=== PATIENT | female | born 1955 | race Caucasian/White ===

== ENCOUNTER 2019-11-17 07:20 | Outpatient (CLI) | payer MEDICARE, SELFPAY ==
--- NOTE | 2019-12-12 13:25 | WPDHOMESLEEP ---
Sleep Study - Home Date of Study: 11/17/19 Ordering Provider: Clara Hopson DO Interpreting Physician: Ema Petersen MD Home Sleep Study Type: Apnea Link Air Height: 1.63 m Weight: 67.132 kg Body Mass Index: 25.4 Folcroft: 21 Reason for Sleep Study history of obstructive sleep apnea syndrome on CPAP, lost weight, history of using Ambien Sleep History Alie Monteiro is a 64 year-old female who was diagnosed with obstructive sleep apnea syndrome and started CPAP 5-6 years ago. At the time she was diagnosed, she weighed 205 lb. She used CPAP until she lost 57 pounds, now 148 lb. When she tries use her CPAP she cannot use it because she cannot breathe. She says that Dr. Hopson will not continue to prescribe the Ambien until she repeats a sleep study. Dr Hopson's note indicates that the patient had restless leg syndrome and leg movements at night until she lost weight. These have resolved She has taken Ambien for 10 years. She has difficulty falling asleep, she wakes up during the night, she has excessive daytime sleepiness and she has a difficult time waking up. She has seen numerous people about her sleep including her primary care doctor, chiropractor, counselor, psychiatrist and psychologist. She does not snore and it is not loud enough that others complain about it. She does not awaken at night with heartburn Edison coughing. She does not awaken at night feeling short of breath. She does constantly have trouble falling asleep with a cold. She does not wake up gasping for breath at night does not have breathing problems at night observed by others does not sweat excessively at night and does not notice her heart pounding or beating irregularly at night. She frequently falls asleep during the day frequently involuntarily occasionally while driving. She does not fall asleep during physical effort. She does not fall asleep with laughing or crying. She does not have loss of muscle tone with strong emotion. She does not has daytime difficulty due to excessive sleepiness. She frequently feels paralyzed on waking or falling asleep occasionally has vivid dreamlike scenes upon awakening or falling asleep. She has never freight to go to sleep. She does not have nightmares and does not remember her dreams. She frequently has racing thoughts, feelings of sadness depression anxiety and frequently has muscular tension, notices parts of her body jerking and she frequently kicks at night. She frequently has crawling and aching feelings in her legs. She occasionally has leg pain at night denies morning jaw pain. She occasionally grinds her teeth at night. She has occasional bothered by pain during the day and occasionally is awakened by pain at night. She rarely wakes up feeling stiff in the morning with sore achy muscles occasion wakes up with pain in the neck and spine. She has dizziness fatigue panic memory problems insomnia headaches and does not find it easy to make decisions. Folcroft = 21, extremely high Normal bedtime is bit at 9:00 p.m. taking quite a while to fall asleep sometimes still awake at 3:30 a.m. in the morning. She wakes 3-4 times at night and stays awake on average between 15 minutes and 1 hour. When she wakes during the night she goes to urinate will get a drink of water. She wakes the morning at 6:30 a.m. or as late as 8:00 a.m.. She has no libido. This causes significant fights with her . She estimates somewhere between 4 and 6 hours of sleep at night. She does take naps. A short nap is not refreshing. She is drowsy in the morning for an hour. She feels better in the morning compared to other times of day. PMH: anxiety major depression seasonal allergies restless leg syndrome and limb movements which have resolved with weight loss PMFSH Past Medical History Medical History Anxiety GERD without esophagitis Hyperlipidemia Insomnia Migraine, unspecified, not
[2019-12-12 14:55] VITALS: BMI 25.4
== END 2019-11-17 07:21 | disposition home or self-care (01) ==
LOC: ANHCSM 07:20
PROVIDERS: PCP Family Medicine; Visit Provider Family Medicine
DX: G47.33 Obstructive sleep apnea (adult) (pediatric) (principal)
CPT/HCPCS: 95806

== ENCOUNTER 2021-05-06 13:00 | Outpatient (CLI) | payer MEDICARE, SELFPAY ==
--- NOTE | ~2021-05-06 | XR_ITS ---
EXAMINATION:[id number] DATE: 05/06/2021 13:27 INDICATION: Back pain TECHNIQUE: AP, lateral, and odontoid views of the cervical spine are provided. COMPARISON: None FINDINGS: Alignment is normal. The odontoid is intact. No fracture is identified. The vertebral body heights are maintained. There is mild loss of intervertebral disc space height throughout the cervica l spine. There is moderate multilevel facet and uncovertebral joint osteoarthritis. Prevertebral soft tissues are normal. IMPRESSION: 1. Mild cervical spondylosis without acute findings. Reviewed, dictated and finalized at location B.
== END 2021-05-06 13:01 | disposition home or self-care (01) ==
PROVIDERS: PCP Family Medicine; Visit Provider Family Medicine
DX: M47.812 Spondylosis without myelopathy or radiculopathy, cervical region (principal)
CPT/HCPCS: 72040

== ENCOUNTER → 2021-05-20 10:35 | Outpatient (CLI) | payer MEDICARE, SELFPAY ==
--- NOTE | ~2021-05-20 | MR_ITS ---
EXAMINATION: MR brain/brain stem wo con EXAM DATE: 05/20/2021 11:26 INDICATION: R41.3 - Other amnesia TECHNIQUE: Magnetic resonance imaging (MRI) of the brain/brain stem obtained without contrast. Shaq pierce T1, axial diffusion, gradient echo (T2*), T1, T2, FLAIR sequences obtained. Comparison is made to prior examination from 08/07/2011. FINDINGS: There are no areas of restricted diffusion to suggest acute infarction. There is no acute hemorrhage seen on the T2*, a hemosiderin sensitive sequence. No intraparenchymal brain mass lesion. There is mild periventricular and subcortical T2/FLAIR signal hyperintensity, nonspecific but pro bably related to small vessel ischemic disease (microangiopathy). There are no extra-axial collecti ons. Flow voids are seen in the cerebral arteries on the T2-weighted sequences consistent with their expected patency. The orbits are unremarkable. Soft tissue is unremarkable. IMPRESSION: Minimal microangiopathy. Otherwise unremarkable exam. Reviewed, dictated and finalized at location A.
== END ==
PROVIDERS: PCP Family Medicine; Visit Provider Family Medicine
DX: R41.3 Other amnesia (principal)
CPT/HCPCS: 70551

== ENCOUNTER 2021-05-28 08:35 | Outpatient (CLI) | payer MEDICARE, SELFPAY ==
--- NOTE | 2021-05-30 12:22 | WPDHOLTEREM ---
Holter/Event Monitor Holter/Event Monitor Date of procedure: 05/28/21 Holter/Event Procedure: 24 Hr Holter Monitor Indications: Palpitations Conclusion: 1. 24 hour holter monitor on 05/28/21. 2. Predominant rhythm is sinus rhythm. HR range 70-135 bpm; average HR 89 bpm. 3. There are 475 premature supraventricular complexes and 6 supraventricular couplets. There are 9 episodes of atrial tachycardia, fastest at 162 bpm and longest lasting 11 beats. 4. There are 8 premature ventricular complexes. No ventricular tachycardia. 5. No sinoatrial or atrioventricular blocks. No significant pauses greater than 2 seconds. 6. Patient reports symptoms of shortness of breath and chest pain which demonstrate sinus rhythm, HR range 82-111 bpm.
== END 2021-05-28 08:36 | disposition home or self-care (01) ==
LOC: ANHCARD 08:36
PROVIDERS: PCP Family Medicine; Visit Provider Family Medicine
DX: I49.9 Cardiac arrhythmia, unspecified (principal); R00.2 Palpitations
CPT/HCPCS: 93225; 93226

== ENCOUNTER → 2021-07-18 12:18 | Outpatient (CLI) | payer MEDICARE, SELFPAY ==
--- NOTE | ~2021-07-18 | MM_ITS ---
EXAMINATION: MM screening bozena BI w tiffany HISTORY: Screening mammogram TECHNIQUE: Craniocaudal and mediolateral oblique 3-D tomosynthesis images were obtained and synthetic 2-D images were generated. CAD analysis was submitted and interpreted. COMPARISON: 07/10/2016 bilateral screening mammogram BREAST PARENCHYMAL COMPOSITION: There are scattered areas of fibroglandular density. FINDINGS: There is no evidence of suspicious mass, calcification, or architectural distortion to sugg est malignancy in either breast. There has been no suspicious interval change. IMPRESSION: 1. No mammographic evidence of malignancy. 2. Recommend routine screening mammography in one year. BI-RADS Category 1: Negative Reviewed, dictated and finalized at location A.
--- NOTE | ~2021-07-18 | DEXA_ITS ---
Bone Density Report Name: DALIA TORREZ Age: 65 Sex: Female Ethnicity: White Date of : 1955 Indication: postmenopausal; screening for osteoporosis; hysterectomy; Referring Provider: Clara Hopson Study: Bone densitometry was performed. Exam Date: July 18, 2021 Accession number: [id number] Bone Density: Region BMD T-score Z-score Classification AP Spine (L1-L4) 0.965 -0.7 1.2 Normal Femoral Neck (Left) 0.724 -1.1 0.5 Osteopenia Total Hip (Left) 0.909 -0.3 1.1 Normal Femoral Neck (Right) 0.733 -1.0 0.6 Normal Total Hip (Right) 0.898 -0.4 1.0 Normal Total Hip Mean 0.904 -0.4 1.1 Normal World Health Organization criteria for BMD impression classify patients as: Normal (T-score at or above -1.0), Osteopenia (T-score between -1.0 and -2.5), or Osteoporosis (T-score at or below -2.5). 10-year Fracture Risk(1): Major Osteoporotic Fracture 8.4% Hip Fracture 0.8% Reported Risk Factors: [place] (), Neck BMD=0.724, BMI=31.1 (1) FRAX(R) Version 3.08. Fracture probability calculated for an untreated patient. Fracture probability may be lower if the patient has received treatment. Clinical Information Provided by Patient: Has the following medical conditions: Hysterectomy Patient maximum height was 64 Menopause Age: 43 No regular weight bearing exercise Drinks caffeinated beverages Onset of menses at age 12 Number of children 3 Impression: The patient has low bone mass, based on the Left Femoral Neck T-score. The patient has an estimated ten-year risk of hip fracture of 0.8% and an estimated ten-year risk of major fracture of 8.4%, based on the WHO FRAX algorithm. Discussion: BONE DENSITY IS LOW AT ONE OR MORE SKELETAL SITES. This patient's lowest T-score is low at one or more skeletal sites. It meets the World Health Organization's (WHO) criteria for ?low bone mass? (T-score between -1.0 and -2.5). The patient's 10-year risk of fracture as calculated by FRAX is less than the threshold where pharmacological therapy is recommended by the National Osteoporosis Foundation (NOF). However, all treatment decisions require clinical judgment and consideration of individual patient factors, including patient preferences, comorbidities, previous drug use, risk factors not captured in the FRAX model (e.g., frailty, falls, vitamin D deficiency, increased bone turnover, interval significant decline in bone density) and possible under or overestimation of fracture risk by FRAX. The patient should follow a healthful lifestyle (good nutrition with adequate calcium and vitamin D, and appropriate weight-bearing exercise). Follow-Up: Consider repeating this study in 2 to 3 years to reassess this patient's status, or sooner if there is some new clinical indication. Reported by: CARLOS on
== END ==
PROVIDERS: PCP Family Medicine; Visit Provider Family Medicine
DX: Z12.31 Encounter for screening mammogram for malignant neoplasm of breast (principal); Z78.0 Asymptomatic menopausal state; M85.852 Other specified disorders of bone density and structure, left thigh
CPT/HCPCS: 77063; 77067; 77080

== ENCOUNTER 2021-07-25 09:58 | Outpatient (CLI) | payer MEDICARE, SELFPAY ==
--- NOTE | ~2021-07-25 | MR_ITS ---
EXAMINATION: MR cervical spine wo con DATE: 07/25/2021 10:49 INDICATION: Cervical radiculopathy. TECHNIQUE: Magnetic resonance imaging (MRI) of the cervical spine was performed without intravenous c ontrast. Sequences included sagittal T2-weighted FSE, sagittal T2-weighted FS FSE, sagittal T1-weight ed FSE, axial MERGE, and axial T2-weighted FSE. COMPARISON: Cervical spine radiographs 05/06/2021 FINDINGS: Bone alignment is normal. Vertebral body heights are normal. There is mildly decreased disc height at C4-C5, C5-C6, and C6-C7. The spinal cord signal intensity is normal. The following disc le vels are specifically discussed: C2-C3: The disc does not extend beyond the endplate margin. There is no uncovertebral joint osteoarth ritis. There is mild bilateral facet joint osteoarthritis. There is no neural foraminal stenosis. The re is no central canal stenosis. C3-C4: The disc is bulging. There is mild bilateral uncovertebral joint osteoarthritis. There is mild bilateral facet joint osteoarthritis. There is mild bilateral neural foraminal stenosis. There is no central canal stenosis. C4-C5: The disc is bulging. There is moderate bilateral uncovertebral joint osteoarthritis. There is severe bilateral facet joint osteoarthritis. There is moderate bilateral neural foraminal stenosis. T here is no central canal stenosis. C5-C6: The disc does not extend beyond the endplate margin. There is mild right uncovertebral joint o steoarthritis. There is severe right and mild left facet joint osteoarthritis. There is mild right ne ural foraminal stenosis. There is no central canal stenosis. C6-C7: The disc is bulging. There is moderate bilateral uncovertebral joint osteoarthritis. There is severe bilateral facet joint osteoarthritis. There is moderate right and mild left neural foraminal s tenosis. There is mild central canal stenosis. C7-T1: The disc does not extend beyond the endplate margin. There is severe bilateral uncovertebral j oint osteoarthritis. There is mild bilateral facet joint osteoarthritis. There is no neural foraminal stenosis. There is no central canal stenosis. IMPRESSION: 1. Moderate cervical spondylosis. Reviewed, dictated and finalized at location A.
== END 2021-07-25 09:59 | disposition home or self-care (01) ==
PROVIDERS: PCP Family Medicine; Visit Provider Nurse Practitioner Family
DX: M47.22 Other spondylosis with radiculopathy, cervical region (principal)
CPT/HCPCS: 72141

== ENCOUNTER 2022-08-29 12:58 | Outpatient (CLI) | payer MEDICARE, SELFPAY ==
[2022-08-29 13:36] LABS: Basophils Absolute Auto 0.1 K/mm3 (0.0-0.1); Basophils Percent Auto 0.8 % (0.2-1.2); Eosinophils Absolute Auto 0.1 K/mm3 (0-0.3); Eosinophils Percent Auto 1.7 % (0-4.4); Hemoglobin 13.8 g/dL (12.0-15.0); Immature Granulocyte Absolute 0.01 K/mm3 (0.00-0.031); Immature Granulocyte Percent A 0.1 % (0-0.5); Lymphocytes Absolute Auto 3.01 K/mm3 (0.9-3.2); Lymphocytes Percent Auto 39.6 % (18.3-44.2); Mean Corpuscular HGB Conc 31.4 g/dl (32-36); Mean Corpuscular Hemoglobin 28.5 pg (26-34); Mean Corpuscular Volume 90.9 fl (80-100); Mean Platelet Volume 9.8 fl (7.4-10.4); Monocytes Absolute Auto 0.4 K/mm3 (0.1-0.6); Monocytes Percent Auto 5.5 % (2.6-8.5); Neutrophils Percent Auto 52.3 % (45.5-73.1); Platelet Count Result 338 k/mm3 (150-375); Red Blood Count 4.84 M/mm3 (4.2-5.4); White Blood Count 7.6 K/mm3 (4.5-10.0)
[2022-08-29 13:50] LABS: D Dimer 0.27 ug/mL (<0.48)
[2022-08-29 13:54] LABS: Alanine Aminotransferase 20 U/L (6-35); Albumin Level 4.5 g/dL (3.5-5.1); Alkaline Phosphatase 62 U/L (38-126); Anion Gap 10 mmol/L (8-16); Aspartate Amino Transferase 25 U/L (14-36); Bilirubin,Total 0.6 mg/dL (0.2-1.3); Blood Urea Nitrogen 15 mg/dL (7-17); Calcium 9.7 mg/dL (8.4-10.2); Carbon Dioxide 26 mmol/L (22-30); Chloride 100 mmol/L (98-107); Estimated Glomerular Filt Rate > 60; Glucose 142 mg/dL (65-110); Lipase 69 U/L (23-300); Potassium 3.8 mmol/L (3.4-5.0); Sodium 136 mmol/L (137-145)
[2022-08-29 14:00] LABS: NT Pro B Type Natriuretic Pept 106 pg/mL (19.9-100); Troponin I < 0.012 ng/mL (0.000-0.034)
== END 2022-08-29 12:59 | disposition home or self-care (01) ==
PROVIDERS: PCP Physician Assistant Medical; Visit Provider Physician Assistant Medical
DX: K21.9 Gastro-esophageal reflux disease without esophagitis (principal); R06.00 Dyspnea, unspecified; R06.02 Shortness of breath; R07.9 Chest pain, unspecified; R13.10 Dysphagia, unspecified; E78.5 Hyperlipidemia, unspecified
CPT/HCPCS: 36415; 80053; 83690; 83735; 83880; 84443; 84484; 85025; 85380

== ENCOUNTER 2022-09-18 01:48 | Day surgery (SDC) | payer MEDICARE, SELFPAY ==
[2022-09-09 08:28] VITALS: BMI 26.4
--- NOTE | 2022-09-17 20:47 | PM.HPGS ---
History of Present Illness History of Present Illness Consent: Risks, benefits, and alternatives have been discussed and questions answered. Patient agrees to proceed with procedure. Chief complaint: GERD, dysphagia Narrative: Alie Montiero is a 66 year old female with dysphagia for solid food. At times it will also seem that it is difficult for water to go down.. Several years ago she had EGD and dilatation it was quite helpful. Review of Systems Review of Systems: All systems reviewed & are unremarkable except as noted in HPI and below PMFSH Past Medical History Medical History Anxiety Dysphagia Dyspnea Folic acid deficiency (non anemic) GERD without esophagitis Hyperlipidemia Insomnia Migraine, unspecified, not intractable, without status migrainosus TRUDY (obstructive sleep apnea) Recurrent major depressive disorder, in full remission Restless legs syndrome Trochanteric bursitis of right hip Vitamin B12 deficiency Vitamin D deficiency, unspecified Surgical History Surgical History Cyst of spinal meninges 1973 Deficient knowledge of hysterectomy 1999 Enlarged tonsils 1971 H/O hernia repair 1958 Family History Family History Father Hypertension Family history of cardiovascular disease Family history of malignant neoplasm Mother Hypertension Family history of chronic obstructive pulmonary disease Grandparent Hypertension Family history of cardiovascular disease Cerebrovascular accident Family history of Alzheimer's disease Social History Social History Smoking status: Never smoker Second hand tobacco smoke exposure: Yes Alcohol intake: never Substance use: never Substance use type: does not use Living arrangements: with family Occupation/Education: retired Gender identity (if verbalized by the patient): Female Sexual Orientation (if Verbalized by the Patient): Straight or Heterosexual Spiritual care concerns: No Agree to blood products: Yes Meds Home Medications and Allergies Home Medications Medication Instructions Recorded Confirmed Type cyclobenzaprine 10 mg tablet 10 mg PO TID PRN muscle spasm #30 05/01/21 09/09/22 Rx tabs cholecalciferol (vitamin D3) 125 125 mcg PO DAILY #90 caps 07/22/21 09/09/22 Rx mcg (5,000 unit) capsule cyanocobalamin (vitamin B-12) 1,000 mcg sublingual DAILY #50 ea 07/22/21 09/09/22 Rx 1,000 mcg sublingual lozenge metoprolol succinate 25 mg 25 mg PO DAILY 07/22/21 09/09/22 History tablet,extended release 24 hr duloxetine 60 mg capsule,delayed See Rx Instructions .Route 07/25/21 09/09/22 Rx release .COMPLEX #90 caps bupropion HCl 150 mg tablet,12 hr See Rx Instructions .Route 07/30/21 09/09/22 Rx sustained-release .COMPLEX #90 tabs lamotrigine 100 mg tablet See Rx Instructions .Route 07/30/21 09/09/22 Rx .COMPLEX #90 tabs aripiprazole 2 mg tablet 2 mg PO DAILY 11/14/21 09/18/22 History zolpidem 12.5 mg tablet,extended 12.5 mg PO QHS PRN sleep #30 tabs 07/03/22 09/09/22 Rx release,multiphase pantoprazole 40 mg tablet,delayed See Rx Instructions .Route 08/20/22 09/09/22 Rx release .COMPLEX #90 tabs gabapentin 600 mg tablet 600 mg PO BID #180 tabs 08/21/22 09/18/22 Rx hydrocodone 7.5 mg-acetaminophen See Rx Instructions .Route 09/09/22 09/09/22 History 325 mg tablet .COMPLEX PRN Pain mupirocin 2 % topical ointment 1 applic topical BID PRN dry nose 09/09/22 09/09/22 History semaglutide 1 mg/dose (2 mg/1.5 1 mg subcut WEEKLY 09/09/22 09/18/22 History mL) subcutaneous pen injector ([email or web address]) Allergies Allergy/AdvReac Type Severity Reaction Status Date / Time No Known Allergies Allergy Verified 09/18/22 11:01 Exam Const: General: alert Orientation/consciousness: patient oriente
[2022-09-18 11:03] VITALS: BP 129/53; PULSE 67; RESP 18; TEMP 36.8; O2SAT 100
[2022-09-18] MEDS: LACTATED RINGERS 1,000 ML 150 ML IV CONT (11:11)
--- NOTE | 2022-09-18 11:39 | WPDANESEPPF ---
Anes - Initial Pre Proc Eval Procedure: Operation Date: 09/18/22 12:30 Proposed Procedures p Esophagogastroduodenoscopy - Uriah Beverly MD Date/Time: 09/18/22 11:39 Surgeon: Uriah Beverly MD Pre Op Diagnosis: GERD, dysphagia Patient Data Age: 66 Gender: F Height: 1.63 m Weight: 73.9 kg Last Vital Signs Temp 98.3 F 09/18/22 11:03 Pulse 67 09/18/22 11:03 Resp 18 09/18/22 11:03 BP 129/53 L 09/18/22 11:03 Pulse Ox 100 09/18/22 11:03 O2 Del Method Room Air 09/18/22 11:03 Allergies Allergy/AdvReac Type Severity Reaction Status Date / Time No Known Allergies Allergy Verified 09/18/22 11:01 Home Medications Medication Instructions Recorded Confirmed Type cyclobenzaprine 10 mg tablet 10 mg PO TID PRN muscle spasm #30 05/01/21 09/09/22 Rx tabs cholecalciferol (vitamin D3) 125 125 mcg PO DAILY #90 caps 07/22/21 09/09/22 Rx mcg (5,000 unit) capsule cyanocobalamin (vitamin B-12) 1,000 mcg sublingual DAILY #50 ea 07/22/21 09/09/22 Rx 1,000 mcg sublingual lozenge metoprolol succinate 25 mg 25 mg PO DAILY 07/22/21 09/09/22 History tablet,extended release 24 hr duloxetine 60 mg capsule,delayed See Rx Instructions .Route 07/25/21 09/09/22 Rx release .COMPLEX #90 caps bupropion HCl 150 mg tablet,12 hr See Rx Instructions .Route 07/30/21 09/09/22 Rx sustained-release .COMPLEX #90 tabs lamotrigine 100 mg tablet See Rx Instructions .Route 07/30/21 09/09/22 Rx .COMPLEX #90 tabs aripiprazole 2 mg tablet 2 mg PO DAILY 11/14/21 09/18/22 History zolpidem 12.5 mg tablet,extended 12.5 mg PO QHS PRN sleep #30 tabs 07/03/22 09/09/22 Rx release,multiphase pantoprazole 40 mg tablet,delayed See Rx Instructions .Route 08/20/22 09/09/22 Rx release .COMPLEX #90 tabs gabapentin 600 mg tablet 600 mg PO BID #180 tabs 08/21/22 09/18/22 Rx hydrocodone 7.5 mg-acetaminophen See Rx Instructions .Route 09/09/22 09/09/22 History 325 mg tablet .COMPLEX PRN Pain mupirocin 2 % topical ointment 1 applic topical BID PRN dry nose 09/09/22 09/09/22 History semaglutide 1 mg/dose (2 mg/1.5 1 mg subcut WEEKLY 09/09/22 09/18/22 History mL) subcutaneous pen injector (Ozempic) Patient hx anesthesia problems: none Family hx anesthesia problems: none Results Review: All pre-operative results and documents have been reviewed as part of the pre-operative evaluation. [facility] Past Medical History Medical History (Updated 08/29/22 @ 18:58 by Jacqui Keenan PA-C) Anxiety Dysphagia Dyspnea Folic acid deficiency (non anemic) GERD without esophagitis Hyperlipidemia Insomnia Migraine, unspecified, not intractable, without status migrainosus TRUDY (obstructive sleep apnea) Recurrent major depressive disorder, in full remission Restless legs syndrome Trochanteric bursitis of right hip Vitamin B12 deficiency Vitamin D deficiency, unspecified Surgical History Surgical History Cyst of spinal meninges 1972 Deficient knowledge of hysterectomy 1999 Enlarged tonsils 1971 H/O hernia repair 1958 Family History Family History Father Hypertension Family history of cardiovascular disease Family history of malignant neoplasm Mother Hypertension Family history of chronic obstructive pulmonary disease Grandparent Hypertension Family history of cardiovascular disease Cerebrovascular accident Family history of Alzheimer's disease Social History Social History Smoking status: Never smoker Second hand tobacco smoke exposure: Yes Alcohol intake: never Substance use: never Substance use type: does not use Living arrangements: with family Occupation/Education: retired Gender identity (if verbalized by the patient): Female Sexual Orientation (if Verbalized by the Patient): Straight or Heterosexual Spi
[2022-09-18 12:03] VITALS: BP 123/52; PULSE 67; RESP 17; O2SAT 99
[2022-09-18 12:13] VITALS: BP 106/63; PULSE 66; RESP 20; O2SAT 98
[2022-09-18 12:23] VITALS: BP 124/67; PULSE 60; RESP 18; O2SAT 98
== END 2022-09-18 12:33 | disposition home or self-care (01) ==
PROVIDERS: PCP Physician Assistant Medical; Visit Provider Internal Medicine Gastroenterology
PROC: 0DJ08ZZ Inspection of Upper Intestinal Tract, Via Natural or Artificial Opening Endoscopic (ICD-10-PCS; CPT 43235; principal; 2022-09-18 12:30)
DX: K22.2 Esophageal obstruction (principal); K44.9 Diaphragmatic hernia without obstruction or gangrene; K21.9 Gastro-esophageal reflux disease without esophagitis; E78.5 Hyperlipidemia, unspecified; G47.33 Obstructive sleep apnea (adult) (pediatric); F41.9 Anxiety disorder, unspecified; F33.42 Major depressive disorder, recurrent, in full remission; E55.9 Vitamin D deficiency, unspecified; E53.8 Deficiency of other specified B group vitamins; G25.81 Restless legs syndrome
CPT/HCPCS: 43249; C1726; J2704; J7120

== ENCOUNTER 2024-06-29 09:34 | Outpatient (CLI) | payer MEDICARE, SELFPAY ==
--- NOTE | ~2024-06-29 | DEXA_ITS ---
Bone Density Report Name: DALIA TORREZ Age: 68 Sex: Female Ethnicity: White Date of : 1955 Indication: osteopenia; height loss; hysterectomy; Referring Provider: MIGUEL ALVES I. Study: Bone densitometry was performed. Exam Date: June 29, 2024 Accession number: [id number] Bone Density: Region BMD T-score Z-score Classification AP Spine(L1-L4) 0.947 -0.9 1.2 Normal Femoral Neck (Left) 0.645 -1.8 0.0 Osteopenia Total Hip (Left) 0.822 -1.0 0.6 Normal Femoral Neck (Right) 0.640 -1.9 -0.1 Osteopenia Total Hip (Right) 0.862 -0.7 0.9 Normal Total Hip Mean 0.842 -0.9 0.8 Normal World Health Organization criteria for BMD impression classify patients as: Normal (T-score at or above -1.0), Osteopenia (T-score between -1.0 and -2.5), or Osteoporosis (T-score at or below -2.5). 10-year Fracture Risk(1): Major Osteoporotic Fracture 10% Hip Fracture 2.0% Reported Risk Factors: [place] (), Neck BMD=0.645, BMI=22.2 (1) FRAX(R) Version 3.08. Fracture probability calculated for an untreated patient. Fracture probability may be lower if the patient has received treatment. Previous Exams: Region Exam Age BMD T-score BMD Change BMD Change Date g/cm2 vs Baseline vs Previous AP Spine (L1-L4) 06/29/2024 68 0.947 -0.9 0.028 (3.1%)* 0.028 (3.1%)* 01/05/2015 59 0.919 -1.2 Total Hip(Left) 06/29/2024 68 0.822 -1.0 -0.130 (-13.6% -0.130 (-13.6% 01/05/2015 59 0.952 0.1 Total Hip(Right) 06/29/2024 68 0.862 -0.7 -0.079 (-8.4%) -0.079 (-8.4%) 01/05/2015 59 0.942 0.0 *Denotes significance at 95% confidence level, LSC for AP Spine = 0.022 g/cm2, LSC for Total Hip = 0.027 g/cm2 Clinical Information Provided by Patient: Has used the following medications: HRT (i.e. estrogen/hormone therapy), Vitamin D Has the following medical conditions: Hysterectomy Patient maximum height was 64.0 No regular weight bearing exercise Drinks caffeinated beverages Onset of menses at age 11 Number of children 3 Impression: The patient has low bone mass, based on the Right Femoral Neck T-score. The patient has an estimated ten-year risk of hip fracture of 2% and an estimated ten-year risk of major fracture of 10%, based on the WHO FRAX algorithm. The BMD for the Total Hip(Left) decreased, changing by -13.6% since the last DXA exam. The BMD for the Total Hip(Right) decreased, changing by -8.4% since the last DXA exam. Discussion: BONE DENSITY IS LOW AT ONE OR MORE SKELETAL SITES. This patient's lowest T-score is low at one or more skeletal sites. It meets the World Health Organization's (WHO) criteria for “low bone mass” (T-score between -1.0 and -2.5). The patient's 10-year risk of fracture as calculated by FRAX is less than the threshold where pharmacological therapy is recommended by the National Osteoporosis Foundation (NOF). However, all treatment decisions require clinical judgment and consideration of individual patient factors, including patient preferences, comorbidities, previous drug use, risk factors not captured in the FRAX model (e.g., frailty, falls, vitamin D deficiency, increased bone turnover, interval significant decline in bone density) and possible under or overestimation of fracture risk by FRAX. The patient should follow a healthful lifestyle (good nutrition with adequate calcium and vitamin D, and appropriate weight-bearing exercise). Follow-Up: Consider repeating this study in 2 years to reassess this patient's status, or sooner if there is some new clinical indication. Reported by: MIGUEL A on 06/29/2024 10:09:00 AM. Reviewed, dictated and finalized at location A.
--- NOTE | ~2024-06-29 | MM_ITS ---
EXAMINATION: MM screening bozena BI w tiffany HISTORY: Screening TECHNIQUE: Craniocaudal and mediolateral oblique 3-D tomosynthesis images were obtained and synthetic 2-D images were generated. CAD analysis was submitted and interpreted. COMPARISON: Comparison to multiple prior studies sequentially, with oldest reviewed study dated 12/18. BREAST PARENCHYMAL COMPOSITION: Dense: The breasts are heterogeneously dense, which may obscure small masses FINDINGS: There is no evidence of suspicious mass, calcification, or architectural distortion to sugg est malignancy in either breast. There has been no suspicious interval change. IMPRESSION: 1. No mammographic evidence of malignancy. 2. Recommend routine screening mammography in one year. BI-RADS Category 1: Negative Reviewed, dictated and finalized at location A.
--- OUTSIDE RECORDS SUMMARY | 2024-06-29 09:44 | XMS_ITS | Encounter Summary ---
Author Organization [facility] Address [address] [place] [address] Phone Care Team Providers Care Pony Rougher Name Role Phone Clara Hopson DO Primary Care Provider + Antonio Mcconnell MD Primary Care Provider [phone] Encounter Details Date Type Department Care Team (Latest Contact Info) Description 04/25/2017 Orders Only [facility] Scanning, Provider Social History Tobacco Use Types Packs/Day Years Used Date Smoking Tobacco: Former Comments Unknown Sex and Gender Information Value Date Recorded Sex Assigned at Not on file Legal Sex Female 8:14 PM [employer] Gender Identity Not on file Sexual Orientation Not on file documented as of this encounter Plan of Treatment Not on file documented as of this encounter Procedures Procedure Name Priority Date/Time Associated Diagnosis Comments SLEEP LAB/STUDY - RESULT 04/25/2017 documented in this encounter Results * SLEEP LAB/STUDY - RESULT (04/25/2017) us Provider Scanning Final Result documented in this encounter Visit Diagnoses Not on filedocumented in this encounter Care Teams Pony Rougher Relationship Specialty Start Date End Date Clara Hopson DO [address] [place] [id number] PCP - General 10/07/16 12/15/21 Antonio Mcconnell MD [address] [place] [id number] PCP - General Family Medicine 12/16/21 documented as of this encounter
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
--- OUTSIDE RECORDS SUMMARY | 2024-06-29 09:44 | XMS_ITS | Referral Summary ---
Author Organization [facility] Address [address] [place] [address] Care Team Providers Care Receptionist Nurse Name Role Phone Antonio Mcconnell MD Primary Care Provider [phone] Allergies Active Allergy Reactions Criticality Noted Date Comments No Known Allergies Other (See comments) Low Reaction: Medications buPROPion SR (WELLBUTRIN SR) 150 mg 12 hr tablet Take 150 mg by mouth daily. Active DULoxetine DR (CYMBALTA) 60 mg capsule Take 60 mg by mouth daily. 10/29/2011 Active lamoTRIgine (LaMICtal) 100 mg tablet Take 100 mg by mouth daily Active gabapentin (NEURONTIN) 600 mg tablet Take 600 mg by mouth 2 (two) times a day Active zolpidem CR (AMBIEN CR) 12.5 mg CR tabletIndicatio ns:Insomnia Take 12.5 mg by mouth nightly as needed for sleep Active pantoprazole DR (PROTONIX) 40 mg EC tablet Take 40 mg by mouth daily Active diclofenac DR (VOLTAREN) 50 mg EC tablet Take 1 tablet (50 mg total) by mouth 2 (two) times a day 60 tablet 06/19/2021 Active HYDROcodone-denise taminophen (NORCO) 5-325 mg per tabletIndicatio ns:Pain Take 1 tablet by mouth every 6 (six) hours as needed for pain 12 tablet 06/19/2021 Active cyclobenzaprine (FLEXERIL) 10 mg tablet Take 10 mg by mouth 2 (two) times a day as needed for muscle spasms Active meloxicam (MOBIC) 7.5 mg tablet Take 7.5 mg by mouth every 12 (twelve) hours as needed for pain Active modafiniL (PROVIGIL) 200 mg tablet Take 100 mg by mouth Take 1 1/2 tabs daily Active ARIPiprazole (ABILIFY) 2 mg tablet Take 2 mg by mouth daily Active metoprolol XL (TOPROL-XL) 25 mg extended release tablet TAKE 1 TABLET(25 MG) BY MOUTH DAILY 90 tablet 06/23/2022 Active Active Problems Problem Noted Date Diagnosed Date 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 At this point her MRI is negative. Her lab work is also unrevealing. I am going to obtain a 24 hour ambulatory EEG for further evaluation. Obviously, if there is an epileptic discharge, we will start antiepileptic medication. This was discussed with the patient today. We also discussed that, should that come to past, we will need to wean her off of the Wellbutrin and try an alternative medication given the black box warning Wellbutrin carries against use in patients with a history of epilepsy. I will see her back p.r.n. depending on the results of the EEG. All questions were answered. 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 Overview (05/28/2017): Description: followed by psychiatrist in [place] - on multiple medications, complicated by anxiety Benign essential hypertension 11/07/2011 Atypical migraine 11/07/2011 Social History Tobacco Use Types Packs/Day Years Used Date Smoking Tobacco: Former Smokeless Tobacco: Never Tobacco Cessation:Counseling Given: Not Answered Comments No Sex and Gender Information Value Date Recorded Sex Assigned at Not on file Legal Sex Female 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 Gender Identity Not on file Sexual Orientation Not on file Last Filed Vital Signs Vital Sign Reading Time Taken Comments Blood Pressure 128/74 12/16/2021 9:54 AM CDT Pulse 71 12/16/2021 9:54 AM CDT Temperature 36.9 C (98.5 F) 06/19/2021 4:35 PM CDT Respiratory Rate 16 12/16/2021 9:54 AM CDT Oxygen Saturation 95% 07/22/2021 10:11 AM CDT Inhaled Oxygen Concentration - - Weight 78.5 kg (173 lb) 12/16/2021 9:54 AM CDT Height 162.6 cm (5' 4 ) 12/16/2021 9:54 AM CDT Body Mass Index 29.7 12/16/2021 9:54 AM CDT Plan of Treatment Not on file Insurance MEDICARE [facility] MEDICARE [facility] MEDICARE [facility] Care Teams Receptionist Nurse Relationship Specialty Start Date End Date Antonio Mcconnell MD [address] [place] [id number] PCP - General Family Medicine 12/16/21
--- OUTSIDE RECORDS SUMMARY | 2024-06-29 09:44 | XMS_ITS | Clinical Summary ---
Author Organization [facility] Address [address] [place] [address] Care Team Providers Care Informatics Physician Liaison Name Role Phone Clara Hopson DO Primary Care Provider [phone] Ailyn Mcneal MD Unavailable [phone] Source Comments [facility],non-owned Affiliates and Associated Physician Practices is amultiple site organization consisting of ambulatory clinics and hospital sitesin [place], [place], [place] and [place]. This disclosure is being madepursuant to the Care Everywhere program and may not contain all information available regarding this patient. Last updated 17.[facility] Allergies No known active allergies Medications * Be aware that medications may not be up to date on this document. Alwaysverify current medications with the patient. zolpidem (AMBIEN) 10 MG tablet Take 10 mg by mouth nightly as needed for Insomnia Active lamoTRIgine (LAMICTAL) 100 MG tablet Take 100 mg by mouth 2 times daily Active vitamin D, ergocalciferol, (DRISDOL) 77812 UNITS capsule Take 1,000 Units by mouth once daily Active cyclobenzaprine (FLEXERIL) 5 MG tablet Take 100 mg by mouth once daily as needed Active dexlansoprazole (Dexilant) 60 MG capsule Take 60 mg by mouth once daily Active buPROPion SR 12hr (ZYBAN) 150 MG tablet Take 150 mg by mouth 2 times daily Active rOPINIRole XL 24hr (REQUIP XL) 2 MG tablet Take 2 mg by mouth once daily Active meloxicam (MOBIC) 7.5 MG tablet Take 7.5 mg by mouth once daily Active topiramate (TOPAMAX) 50 MG tablet Take 50 mg by mouth 2 times daily Active modafinil (PROVIGIL) 200 MG tablet Take 200 mg by mouth every morning Active folic acid (FOLVITE) 1 MG tablet Take 1 mg by mouth once daily Active DULoxetine (Cymbalta) 60 MG capsule Take 60 mg by mouth once daily 07/26/2021 Active gabapentin (Neurontin) 600 MG tablet Take 600 mg by mouth 2 times daily Active HYDROcodone-denise taminophen ([place]) 5-325 MG tablet Take 1 tablet by mouth every 6 hours as needed 06/19/2021 Active pantoprazole EC (Protonix) 40 MG tablet Take 40 mg by mouth once daily Active ARIPiprazole (Abilify) 2 MG tablet Take 2 mg by mouth once daily Active cyanocobalamin (Vitamin B-12) 100 MCG tablet Take 100 mcg by mouth once daily Active Active Problems No known active problems Family History Medical History Relation Name Comments CAD (Coronary Artery Disease) Father Cancer - Other Father brain Hypertension Father Hypertension Mother Relation Name Status Comments Father Mother Social History Tobacco Use Types Packs/Day Years Used Date Smoking Tobacco: Former Cigarettes Smokeless Tobacco: Never Alcohol Use Standard Drinks/Week Comments Yes 0 (1 standard drink = 0.6 oz pur e alcohol) socially Comments No Sex and Gender Information Value Date Recorded Sex Assigned at Not on file Legal Sex Female 10:28 AM CDT Gender Identity Not on file Sexual Orientation Not on file Last Filed Vital Signs Vital Sign Reading Time Taken Comments Blood Pressure 155/80 10/17/2021 9:18 AM CDT Pulse 74 10/17/2021 9:18 AM CDT Temperature 36.8 C (98.3 F) 10/17/2021 9:18 AM CDT Respiratory Rate 12 10/24/2016 11:12 AM CDT Oxygen Saturation 99% 10/17/2021 9:18 AM CDT Inhaled Oxygen Concentration - - Weight 79.4 kg (175 lb) 10/17/2021 9:18 AM CDT Height 162.6 cm (5' 4 ) 10/17/2021 9:18 AM CDT Body Mass Index 30.04 10/17/2021 9:18 AM CDT Plan of Treatment Health Maintenance Due Date Last Done Comments BONE DENSITY TESTING 1955 COLOGUARD (AGES 45-75) - COL ON CA SCREENING 1955 COLON MONITORING 1953 COLONOSCOPY - COLON CA SCREENING 1953 CT COLONOGRAPHY - COLON CA SCREENING 1955 Colorectal Cancer Screening 1955 FIT - COLON CA SCREENING 1953 FLEX SIG - COLON CA SCREENING 1955 MAMMOGRAM 1955 MEDICARE AWV 12 MONTHS 1953 HEPATITIS C SCREENING 10/30/1971 DTAP/TDAP/TD VACCINES (1 - Tdap) 1972 PNEUMOCOCCAL VACCINE 50+ (1 of 1 - PCV) 11/04/2003 ZOSTER VACCINE (1 of 2) 11/04/2003 SCREENING FOR DIABETES 10/24/2016 COVID-19 VACCINE (1 - 2023-2 5 season) 2023 DEPRESSION SCREENING 02/17/2024 INFLUENZA VACCINE (Season Ended) 2024 LIPID TESTING 07/22/2026 07/22/2021 Respiratory Syncytial Virus (RSV) Vaccine Pt: or over 60 yrs (1 - 1-dose 75+ series) 2028 HEPATITIS B VACCINE Aged Out No longe r eligible based on patient's age to complete this topic HIB VACCINE Aged Out No longer eligi ble based on patient's age to complete this topic HPV VACCINE Aged Out No longer eligi ble based on patient's age to complete this topic MENINGOCOCCAL (Group B) VACC INE SHARED DECISION-MAKING Aged Out No longer eligibl e based on patient's age to complete this topic MENINGOCOCCAL GROUPS A/C/Y/W VACCINE Aged Out No longer eligible b ased on patient's age to complete this topic Insurance [facility] MEDICARE [facility] Care Teams Informatics Physician Liaison Relationship Specialty Start Date End Date Clara Hopson DO [facility] [place] [address] PCP - General 08/27/21 Ailyn Mcneal MD [address] [place] [id number] Family Medicine 08/27/21
--- OUTSIDE RECORDS SUMMARY | 2024-06-29 09:44 | XMS_ITS | Clinical Summary ---
Author Organization [facility] Address [address] [place] [id number] Care Team Providers Care Director Of Billing Name Role Phone Unavailable Primary Care Provider Unavailabl e Social History Tobacco Use Types Packs/Day Years Used Date Smoking Tobacco: Never Assessed Comments Unknown Sex and Gender Information Value Date Recorded Sex Assigned at Not on file Legal Sex Female 6:41 PM CDT Gender Identity Not on file Sexual Orientation Not on file Plan of Treatment Health Maintenance Due Date Last Done Comments Colorectal Cancer Screening Colonoscopy (10 Years) 1955 Hepatitis C 11/04/1971 DTaP, Tdap and Td Vaccines ( 1 - Tdap) 1972 Mammogram Screening 1993 Pneumococcal Vaccine: 50+ Ye ars (1 of 1 - PCV) 11/04/2003 Zoster Vaccines (1 of 2) 11/04/2003 Dexa Scan (General) 2018 COVID-19 Vaccine ( - 2023-2 5 season) 2023 RSV Immunization or 60+ Years (1 - 1-dose 75+ series) 2028 Meningococcal B Vaccine Aged Out No l onger eligible based on patient's age to complete this topic Meningococcal Vaccine Aged Out No darrell archie eligible based on patient's age to complete this topic RSV Immunizations Under 20 Months Aged Out No longer eligible based on patient's age to complete this topic
--- OUTSIDE RECORDS SUMMARY | 2024-06-29 09:44 | XMS_ITS | Clinical Summary ---
Author Organization [facility] Address [address] [place] [address] Care Team Providers Care Alpaca Farmer Name Role Phone Antonio Mcconnell MD Primary Care Provider [phone] Allergies Active Allergy Reactions Criticality Noted Date [...] Overview (05/28/2017): Description: followed by psychiatrist in [place], [place] - on multiple medications, complicated by anxiety Benign essential hypertension 11/07/2011 Atypical migraine 11/07/2011 Surgical History Surgery Date Site/Laterality Comments HERNIA REPAIR Hernia Repair - (Added by TW Conv) HYSTERECTOMY Hysterectomy - (Added by TW Conv) BLADDER SURGERY Bladder Surgery - (Added by TW Conv) MT TONSILLECTOMY PRIMARY/SEC ONDARY <AGE 10 Tonsillectomy - (Added by TW Conv) Medical History Medical History Date Comments Personal history of other di seases of the circulatory system History of hypertension - (A dded by TW Conv) Abdominal hernia without obs truction or gangrene Hernia - (Added by TW Conv) Personal history of other me ntal and behavioral disorders History of depression - (Add ed by TW Conv) GERD (gastroesophageal reflux disease) 1998 Anxiety 1995 Arthritis 2018 Depression 1995 Migraines 2007 Family History Medical History Relation Name Comments Hypertension Brother 1 Family history of hypertension - (Added by TW Conv) Depression Brother 2 Evan Greene Hypertension Brother 2 Evan Greene Arthritis Father Bg Greene Brain cancer Father Bg Greene Brain tumor - ( Added by TW Conv) Cancer Father Bg Greene Heart attack Father Bg Greene Heart disease Father Bg Greene Heart Disease - (Added by TW Conv) Hypertension Father Bg Greene Family history of hypertension - (Added by TW Conv) Heart attack Maternal Grandfather Ambers Foster Hypertension Maternal Grandfather Ambers Foster Family history of hypertension - (Added by TW Conv) Hearing loss Maternal Grandmother Botkins Foster Heart attack Maternal Grandmother Botkins Foster Hypertension Maternal Grandmother Botkins Foster Family history of hypertension - (Added by TW Conv) Stroke Maternal Grandmother Botkins Foster Arthritis Mother Tanja Greene COPD Mother Tanja Greene Depression Mother Tanja Greene Family history of depression - (Added by TW Conv) Hypertension Mother Tanja Greene Family history of hypertension - (Added by TW Conv) Miscarriages / Stillbirths Mother Tanja Greene Heart attack Paternal Grandfather Shmuel Greene Heart disease Paternal Grandfather Shmuel Greene Hear t Disease - (Added by TW Conv) Hypertension Paternal Grandfather Shmuel Greene Famil y history of hypertension - (Added by TW Conv) Stroke Paternal Grandfather Shmuel Greene Strok e Syndrome - (Added by TW Conv) Alzheimer's disease Paternal Grandmother Mahamed Hastings s Alzheimer Disease - onset 70s (Added by TW Conv) Arthritis Paternal Grandmother Mahamed Greene Hypertension Paternal Grandmother Mahamed Greene Famil y history of hypertension - (Added by TW Conv) Memory loss Paternal Grandmother Mahamed Greene Migraines Sister 1 Migraine Headac he - tells me similar to hers and onset at age 58 ! No family history of early strokes or seizures (Added by TW Conv) Hypertension Sister 2 Family history of hypertension - (Added by TW Conv) Depression Sister 3 Family history of depression - (Added by TW Conv) Arthritis Sister 4 Irma Moenster Hypertension Sister 4 Irma Moenster Arthritis Sister 5 Flaca [place] Depression Sister 5 Flaca [place] Mental illness Son Jhon Monteiro Relation Name Status Comments Brother 1 Brother 2 Evan Greene Father Bg Greene Maternal Grandfather Joaquin Foster Maternal Grandmother Joelle Foster Mother Tanja Greene Paternal Grandfather Shmuel Greene Paternal Grandmother Mahamed Greene Sister 1 Sister 2 Sister 3 Sister 4 Irma Moenster Sister 5 Flaca [place] Son Jhon Monteiro Social History Tobacco Use Types Packs/Day Years Used Date Smoking Tobacco: Former Smokeless Tobacco: Never Tobacco Cessation:Counseling Given: Not Answered Comments No Sex and Gender Information Value Date Recorded Sex Assigned at Not on file 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 Gender Identity Not on file Sexual Orientation Not on file Obstetrics History Last Filed Vital Signs Vital Sign Reading [...] 12/16/2021 9:54 AM CDT Plan of Treatment Health Maintenance Due Date Last Done Comments Breast Cancer Screening-Mammogram 1955 Colon Cancer Screening-Colonoscopy 1955 Depression Screening 1955 Fall Risk Assessment 1955 Hepatitis C Screening 1955 Osteoporosis Screening-Bone Density Scan 1955 DTaP/Tdap/Td Vaccine (1 - Tdap) 1964 Hepatitis B Screening 11/04/1971 Pneumococcal vaccine 65+ (1 of 1 - PCV) 11/04/2003 Zoster Vaccine (1 of 2) 11/04/2003 Well Visit 65+ 2018 Influenza Vaccine (Season Ended) 2024 04/26/19 14, 04/25/2013 Insurance MEDICARE [facility] MEDICARE [facility] MEDICARE [facility] Care Teams Alpaca Farmer Relationship Specialty Start Date End Date Antonio Mcconnell MD [address] [place] [id number] PCP - General Family Medicine 12/16/21
== END 2024-06-29 09:35 | disposition home or self-care (01) ==
LOC: ANHIMG 09:35
PROVIDERS: PCP Physician Assistant Medical; Visit Provider Physician Assistant Medical
DX: Z12.31 Encounter for screening mammogram for malignant neoplasm of breast (principal); M85.852 Other specified disorders of bone density and structure, left thigh; M85.851 Other specified disorders of bone density and structure, right thigh; Z78.0 Asymptomatic menopausal state
CPT/HCPCS: 77063; 77067; 77080

== ENCOUNTER 2024-08-03 14:11 | Outpatient (CLI) | payer MEDICARE, SELFPAY ==
--- NOTE | ~2024-08-03 | CT_ITS ---
CLINICAL INDICATION: Abdominal bruit. COMPARISON: None. TECHNIQUE: Computed tomography angiography (CTA) of the abdominal aorta with runoff was performed wit h 150 mL Omnipaque-350 intravenous contrast timed to evaluate the abdominal aorta, mesenteric and per ipheral lower extremity vasculature. Coronal maximum intensity projection 3D-reconstructions were created by the technologist. The dose-length product (DLP) was 1153.16 mGy-cm. Automated exposure control and iterative reconstruction technique were employed. FINDINGS/OBSERVATIONS: Visualized lower thorax: The bilateral lung bases are clear. The heart is of normal size without pericardial effusion. Moderate hiatal hernia is present. Liver: The liver enhances homogeneously and is not enlarged. Gallbladder and biliary system: The gallbladder is only minimally distended, without calcified stones. Pancreas: The pancreas enhances homogeneously without ductal dilatation. Spleen: The spleen enhances homogeneously without enlargement. Kidneys: The bilateral kidneys enhance symmetrically without hydronephrosis or obstructing renal calculi. Adrenal glands: Unremarkable. Gastrointestinal tract: Fecal stasis within the colon. Appendix: The appendix is not definitively visualized. However, no pericecal inflammatory change is identified suggest the presence of acute appendicitis. Vasculature: The visualized portion of the thoracic aorta is nonaneurysmal. The abdominal aorta is nonaneurysmal and without dissection. The celiac origin is patent and demonstrates conventional anatomy. The superior mesenteric artery is also patent, with only trace atherosclerosis. The bilateral renal arteries are patent, and otherwise unremarkable. The inferior mesenteric artery is diminutive but patent. The right common iliac artery is patent without calcified atherosclerosis. The right internal and external iliac arteries are patent, without aneurysmal dilatation or significa nt stenosis. The right common femoral artery is patent without aneurysmal dilatation or significant stenosis. The right superficial femoral artery and profunda femoral artery are both patent and without signific ant stenosis, aneurysmal dilatation or dissection. The right popliteal artery is patent, of normal caliber, and without aneurysmal dilatation or dissect ion. Three-vessel runoff is identified within the right calf with two-vessel runoff into the right foot. The left common iliac artery is patent without calcified atherosclerosis. The left internal and external iliac arteries are patent, without aneurysmal dilatation or significan t stenosis. The left common femoral artery is patent without aneurysmal dilatation or significant stenosis. The left superficial femoral artery and profunda femoral artery are both patent and without significa nt stenosis, aneurysmal dilatation or dissection. The left popliteal artery is patent, of normal caliber, and without aneurysmal dilatation or dissecti on. Three-vessel runoff is identified within the left calf with two-vessel runoff into the left foot. Lymph nodes: No pathologically enlarged or morphologically suspicious lymph nodes within the retroperitoneum, or t he root of the mesentery. Pelvic structures: The bladder is only minimally distended. The uterus is either atrophic or surgically absent. Body wall and musculoskeletal: Age appropriate degenerative disease within the lower thoracic and lum bosacral spine. IMPRESSION: Moderate hiatal hernia. Otherwise, unremarkable CTA of the abdomen/pelvis and bilateral lower extremities, as detailed above. Reviewed, dictated and finalized at location A. IMPRESSION: Moderate hiatal hernia. Otherwise, unremarkable CTA of the abdomen/pelvis and bilateral lower extremiti es, as detailed above.
[2024-08-03 14:57] LABS: Estimated Glomerular Filt Rate > 60
== END 2024-08-03 14:12 | disposition home or self-care (01) ==
LOC: MICIMG 14:14
PROVIDERS: PCP Physician Assistant Medical; Visit Provider Physician Assistant Medical
DX: R09.89 Other specified symptoms and signs involving the circulatory and respiratory systems (principal); K44.9 Diaphragmatic hernia without obstruction or gangrene; I70.203 Unspecified atherosclerosis of native arteries of extremities, bilateral legs
CPT/HCPCS: 75635; Q9967

== ENCOUNTER 2024-08-08 00:35 | Day surgery (SDC) | payer MEDICARE, SELFPAY ==
[2024-07-28 09:48] VITALS: BMI 20.6
[2024-08-08 08:15] VITALS: BP 131/62; PULSE 64; RESP 18; TEMP 36.2; O2SAT 100
--- NOTE | 2024-08-08 08:20 | P.PNAN_ITS ---
Anes - Initial Pre Proc Eval Procedure: Operation Date: 08/08/24 09:30 Proposed Procedures p Esophagogastroduodenoscopy - Elian Huffman MD Date/Time: 08/08/24 08:20 Surgeon: Elian Huffman MD Pre Op Diagnosis: Dysphagia, unspecified Patient Data Age: 68 Gender: F Height: 1.63 m Weight: 58 kg Last Vital Signs Temp 36.2 C L 08/08/24 08:15 Pulse 64 08/08/24 08:15 Resp 18 08/08/24 08:15 BP 131/62 08/08/24 08:15 Pulse Ox 100 08/08/24 08:15 O2 Del Method Room Air 08/08/24 08:15 Allergies Allergy/AdvReac Type Severity Reaction Status Date / Time No Known Allergies Allergy Verified 08/08/24 08:14 Home Medications ?Medication ?Instructions ?Recorded ?Confirmed ?Type aripiprazole 2 mg tablet 2 mg PO DAILY 11/14/21 07/28/24 History hydrocodone 7.5 mg-acetaminophen See Rx Instructions .Route 09/09/22 07/28/24 History 325 mg tablet .COMPLEX PRN Pain bupropion HCl 150 mg tablet,12 hr 150 mg PO DAILY #90 tabs 01/07/24 07/28/24 Rx sustained-release duloxetine 60 mg capsule,delayed 60 mg PO DAILY #90 caps 01/07/24 07/28/24 Rx release gabapentin 600 mg tablet 600 mg PO BID #180 tabs 01/07/24 07/28/24 Rx lamotrigine 100 mg tablet 100 mg PO DAILY #90 tabs 01/07/24 07/28/24 Rx zolpidem 12.5 mg tablet,extended 12.5 mg PO QHS 90 days #90 tabs 02/02/24 07/28/24 Rx release,multiphase (Ambien CR) pantoprazole 40 mg tablet,delayed 40 mg PO DAILY #90 tabs 05/06/24 07/28/24 Rx release cholecalciferol (vitamin D3) 10 10 mcg PO DAILY #90 caps 07/25/24 07/25/24 Rx mcg (400 unit) capsule Patient hx anesthesia problems: none Family hx anesthesia problems: none Results Review: All pre-operative results and documents have been reviewed as part of the pre- operative evaluation. [facility] Past Medical History Medical History (Updated 07/25/24 @ 12:11 by Jacqui Keenan PA-C) History of esophageal stricture Abdominal bruit COVID-19 (~08/08/22) Folic acid deficiency (non anemic) Dyspnea Dysphagia Trochanteric bursitis of right hip TRUDY (obstructive sleep apnea) Resolved with weight loss, CPAP no longer required per pulmonology Insomnia Anxiety Follows with psychiatry GERD without esophagitis Hyperlipidemia Migraine, unspecified, not intractable, without status migrainosus Recurrent major depressive disorder, in full remission Restless legs syndrome Symptoms resolved Vitamin B12 deficiency Vitamin D deficiency, unspecified Surgical History Surgical History Deficient knowledge of hysterectomy 1999 Cyst of spinal meninges 1972 Enlarged tonsils 1971 H/O hernia repair 1958 Family History Family History Father Hypertension Family history of cardiovascular disease Family history of malignant neoplasm Mother Hypertension Family history of chronic obstructive pulmonary disease Grandparent Hypertension Family history of cardiovascular disease Cerebrovascular accident Family history of Alzheimer's disease Social History Social History (Updated 07/25/24 @ 16:26 by Xavier Huddleston MA) Social History: 07/23/24 very confident with medical forms Smoking status: Never smoker Second hand tobacco smoke exposure: Yes Alcohol intake: never Substance use: never Substance use type: does not use Do You Feel Safe in your Home?: Yes Lack of Transportation: No Lack of Food: Never True Current Housing: I Have Housing Concerned About Future Housing: No Difficulty Paying Gas/Electric Bills: No Difficulty Paying for Meds: No Currently Unemployed: No Education: High School Diploma/GED Difficulty w/ Childcare or Family Care: No Living arrangements: with family Occupation/Education: retired Gender identity (if verbalized by the patient): Female Sexual Orientation (if Verbalized by the Patient): Straight or Heterosexual Spiritual care concerns: No Agree to blood products: Yes Anes - Eval Final PreProcedure Day of Procedure 08/08/24 08:20 Patient weight: normal Heart: regular rate and rhythm Lungs: clear to auscultation and normal air movement Airway: Mallampati scale class II Neurological: alert and oriented Last oral intake: >/= 8 hours ASA classification: II Emergent: no Anesthetic plan: proceed Anesthesia type and monitoring: general GIVS and standard monitoring Results Review: All pre-operative results and documents have been reviewed as part of the pre- operative evaluation. Informed Consent: The patient's anesthetic plan and its attendant risks and benefits were discussed with the patient/family/POA. Questions were solicited and answers prov ided to the satisfaction of the patient/family/POA.
[2024-08-08] MEDS: LACTATED RINGERS 1,000 ML 150 ML IV CONT (08:24)
--- NOTE | 2024-08-08 09:19 | PM.HPGS ---
History of Present Illness History of Present Illness Consent: Risks, benefits, and alternatives have been discussed and questions answered. Patient agrees to proceed with procedure. Chief complaint: Dysphagia, unspecified Narrative: Alie Monteiro is a 68 year old female here for egd because of dysphagia, had esophageal dilation about 5 years ago Review of Systems Review of Systems: All systems reviewed & are unremarkable except as noted in HPI and below PMFSH Past Medical History Medical History (Updated 07/25/24 @ 12:11 by Jacqui Keenan PA-C) History of esophageal stricture Abdominal bruit COVID-19 (~08/08/22) Folic acid deficiency (non anemic) Dyspnea Dysphagia Trochanteric bursitis of right hip TRUDY (obstructive sleep apnea) Resolved with weight loss, CPAP no longer required per pulmonology Insomnia Anxiety Follows with psychiatry GERD without esophagitis Hyperlipidemia Migraine, unspecified, not intractable, without status migrainosus Recurrent major depressive disorder, in full remission Restless legs syndrome Symptoms resolved Vitamin B12 deficiency Vitamin D deficiency, unspecified Surgical History Surgical History Deficient knowledge of hysterectomy 1999 Cyst of spinal meninges 1972 Enlarged tonsils 1971 H/O hernia repair 1958 Family History Family History Father Hypertension Family history of cardiovascular disease Family history of malignant neoplasm Mother Hypertension Family history of chronic obstructive pulmonary disease Grandparent Hypertension Family history of cardiovascular disease Cerebrovascular accident Family history of Alzheimer's disease Social History Social History (Updated 07/25/24 @ 16:26 by Xavier Huddleston MA) Social History: 07/23/24 very confident with medical forms Smoking status: Never smoker Second hand tobacco smoke exposure: Yes Alcohol intake: never Substance use: never Substance use type: does not use Do You Feel Safe in your Home?: Yes Lack of Transportation: No Lack of Food: Never True Current Housing: I Have Housing Concerned About Future Housing: No Difficulty Paying Gas/Electric Bills: No Difficulty Paying for Meds: No Currently Unemployed: No Education: High School Diploma/GED Difficulty w/ Childcare or Family Care: No Living arrangements: with family Occupation/Education: retired Gender identity (if verbalized by the patient): Female Sexual Orientation (if Verbalized by the Patient): Straight or Heterosexual Spiritual care concerns: No Agree to blood products: Yes Meds Home Medications and Allergies Home Medications ?Medication ?Instructions ?Recorded ?Confirmed ?Type aripiprazole 2 mg tablet 2 mg PO DAILY 11/14/21 07/28/24 History hydrocodone 7.5 mg-acetaminophen See Rx Instructions .Route 09/09/22 07/28/24 History 325 mg tablet .COMPLEX PRN Pain bupropion HCl 150 mg tablet,12 hr 150 mg PO DAILY #90 tabs 01/07/24 07/28/24 Rx sustained-release duloxetine 60 mg capsule,delayed 60 mg PO DAILY #90 caps 01/07/24 07/28/24 Rx release gabapentin 600 mg tablet 600 mg PO BID #180 tabs 01/07/24 07/28/24 Rx lamotrigine 100 mg tablet 100 mg PO DAILY #90 tabs 01/07/24 07/28/24 Rx zolpidem 12.5 mg tablet,extended 12.5 mg PO QHS 90 days #90 tabs 02/02/24 07/28/24 Rx release,multiphase (Ambien CR) pantoprazole 40 mg tablet,delayed 40 mg PO DAILY #90 tabs 05/06/24 07/28/24 Rx release cholecalciferol (vitamin D3) 10 10 mcg PO DAILY #90 caps 07/25/24 07/25/24 Rx mcg (400 unit) capsule Allergies Allergy/AdvReac Type Severity Reaction Status Date / Time No Known Allergies Allergy Verified 08/08/24 08:14 Vital Signs Vital Signs - 24 hr 08/08/24 08:15 Temperature 97.1 F L Pulse Rate 64 Respiratory Rate 18 Blood Pressure 131/62 Pulse Oximetry 100 Oxygen Delivery Room Air Exam Const: General: comfortable and no acute distress HENMT: Face/Nose/Sinus: Normal nares present Eyes: General: appearance normal, both eyes and all related structures Neck: Neck: no JVD Resp: Auscultation: clear to auscultation bilaterally Cardio: Rate: regular rate Rhythm: regular rhythm GI: Inspection: non-distended GI Palp: Yes Soft to palpation Skin: General skin exam: normal color Neuro: Speech: normal speech Extrem: General: normal to inspection Psych: Mental Status: mental status grossly normal Assessment and Plan Assessment and plan (1) Dysphagia: Code(s): R13.10 - Dysphagia, unspecified Status: Acute Assessment and Plan: egd (2) GERD without esophagitis: Code(s): K21.9 - Gastro-esophageal reflux disease without esophagitis Status: Acute Assessment and Plan: on ppi daily
[2024-08-08 09:33] VITALS: BP 109/62; PULSE 71; RESP 20; O2SAT 100
[2024-08-08 09:43] VITALS: BP 119/68; PULSE 67; RESP 20; O2SAT 99
[2024-08-08 09:53] VITALS: BP 124/81; PULSE 75; RESP 19; O2SAT 99
== END 2024-08-08 10:00 | disposition home or self-care (01) ==
PROVIDERS: PCP Physician Assistant Medical; Referring Provider Physician Assistant Medical; Visit Provider Internal Medicine Gastroenterology
PROC: 0DJ08ZZ Inspection of Upper Intestinal Tract, Via Natural or Artificial Opening Endoscopic (ICD-10-PCS; CPT 43249; principal; 2024-08-08 09:30)
DX: K22.2 Esophageal obstruction (principal); K44.9 Diaphragmatic hernia without obstruction or gangrene; K22.4 Dyskinesia of esophagus; K21.9 Gastro-esophageal reflux disease without esophagitis
CPT/HCPCS: 43249; C1726; J2003; J2704; J7120